=== PATIENT | female | born 1955 | race Caucasian/White ===

== ENCOUNTER → 2017-03-25 | Outpatient (CLI) | payer OTHER ==
[~2017-03-25] MED LIST: AMBIEN5 MG PO; ERGOCALCIF50000 UNIT PO; ESTRACE VG; GUMMI BEAR MUL1 EACH PO; RECLAST5 MG/100 M IV
== END | disposition home or self-care (01) ==
LOC: CDC 09:22
DX: Z01.810 Encounter for preprocedural cardiovascular examination (principal)
CPT/HCPCS: 93000

== ENCOUNTER 2017-03-30 05:44 | Inpatient (IN) | payer OTHER ==
[~2017-03-30] VITALS: Ht 157.5 cm; Wt 61.0 kg
[2017-03-30 05:58] VITALS: BP 113/66
[2017-03-30 13:30] VITALS: BP 107/55
[2017-03-30 15:21] VITALS: BP 110/59
[2017-03-30 19:10] VITALS: BP 102/55
[2017-03-30 23:24] VITALS: BP 115/59
[2017-03-31 03:18] VITALS: BP 102/55
[2017-03-31 06:49] LABS: HEMATOCRIT 31.7 % (36.0-46.0); MCH 31.6 PG (29.0-34.0); MCHC 33.1 G/DL (30.0-36.0); MCV 95.5 FL (83-99); MEAN PLAT.VOLUME 11.2 uM^3 (9.5-12.4); PLATELET COUNT 171 K/uL (156-360); RBC DIS.WIDTH-CV 13.3 % (11.8-14.6); RBC DIS.WIDTH-SD 47.1 % (39-53); RED BLOOD COUNT 3.32 M/uL (3.80-5.20)
[2017-03-31 07:12] LABS: WHITE BLOOD COUNT 9.8 K/uL (4.1-10.2)
[2017-03-31 07:15] VITALS: BP 116/57
[2017-03-31 12:27] VITALS: BP 135/61
[2017-03-31 14:33] LABS: EOSINOPHIL (%) 0 % (0-5); HEMATOCRIT 31.5 % (36.0-46.0); IMMATURE GRANULOCYTE (%) 0.5 % (0.0-0.7); IMMATURE GRANULOCYTE COUNT 0.1 K/uL; INSTRUMENT ABS NEUTROPHIL CT 8.4 K/uL; LYMPHOCYTE COUNT 0.6 K/uL (1.0-2.8); MCH 31.5 PG (29.0-34.0); MCHC 32.7 G/DL (30.0-36.0); MCV 96.3 FL (83-99); MEAN PLAT.VOLUME 11.7 uM^3 (9.5-12.4); MONOCYTE (%) 6.7 % (3-12); MONOCYTE COUNT 0.7 K/uL (0-0.8); NEUTROPHIL (%) 86.6 % (45-76); NEUTROPHIL COUNT 8.4 K/uL (1.8-6.4); PLATELET COUNT 166 K/uL (156-360); RBC DIS.WIDTH-CV 13.4 % (11.8-14.6); RBC DIS.WIDTH-SD 47.6 % (39-53); RED BLOOD COUNT 3.27 M/uL (3.80-5.20); WHITE BLOOD COUNT 9.7 K/uL (4.1-10.2)
[2017-03-31 16:00] VITALS: BP 171/80
[2017-03-31 23:00] VITALS: BP 130/62
[2017-04-01 07:20] VITALS: BP 151/75
[2017-04-01 11:20] VITALS: BP 134/90
[2017-04-01] MEDS ORDERED: VICODIN 5-3001 EACH PO (15:09)
[2017-04-01] MEDS ORDERED: MOTRIN800 MG PO (15:09)
[2017-04-01] MEDS ORDERED: REGLAN10 MG PO (15:13)
== END 2017-04-01 16:12 | disposition home or self-care (01) | DRG 743 ==
LOC: 2SOUTH 05:44 → 2EAST 13:27 → 2SOUTH 14:03 → 2EAST 04-01 16:12
PROVIDERS: Obstetrics & Gynecology
DX: N81.4 Uterovaginal prolapse, unspecified (principal); N81.89 Other female genital prolapse; M81.0 Age-related osteoporosis without current pathological fracture; Z82.61 Family history of arthritis; Z82.49 Family history of ischemic heart disease and other diseases of the circulatory system; Z80.3 Family history of malignant neoplasm of breast; Z82.0 Family history of epilepsy and other diseases of the nervous system
CPT/HCPCS: 85025; 85025 91; 85027; 88307; 94799; C1781; J0131; J0690; J1100; J1170; J1885; J2250; J2405; J2710; J2765; J3010; J7120